=== PATIENT | female | born 1990 | race Caucasian/White ===

== ENCOUNTER 2016-07-07 19:05 | Outpatient (CLI) | payer OTHER ==
[~2016-07-07] VITALS: Ht 162.6 cm; Wt 87.3 kg
[~2016-07-07 19:05] MED LIST: ACET500T98; CIPR500T4 PO; CLOT45CR VG; FOLI1POW MC; HYDR-3498 PO; IBUP800T25; NAPR-260 PO; PREN1TAB17 PO
[2016-07-07 19:26] VITALS: BP 113/59; PULSE 70; RESP 18; Ht 162.6 cm; Wt 87.3 kg
[2016-07-07 19:49] LABS: URINE BLOOD (Dip) POC Negative (NEGATIVE)
--- NOTE | 2016-07-07 20:23 | QN ---
Documentation Comment @25+wks GA No VB some cramps currently not feeling any CTXs +FM No LOF Nst reassuring for GA [place] NO CTXs ---CXL MARY ANN EFW and labs are ordered If ultrasonographic findings and labs are wnl for her GA she can be discharged with precautions DALE BARNETT M.D. Jul 07, 2016 20:23
[2016-07-07 21:55] LABS: ADD UMIC YES; URINE BILIRUBIN (Dip) NEGATIVE (NEGATIVE); URINE BLOOD (Dip) NEGATIVE (NEGATIVE); URINE COLOR LT. YELLOW (YELLOW); URINE GLUCOSE (Dip) NEGATIVE (NEGATIVE); URINE KETONES (Dip) NEGATIVE (NEGATIVE); URINE LEUKOCYTE ESTERASE (Dip) TRACE (NEGATIVE); URINE NITRITE (Dip) NEGATIVE (NEGATIVE); URINE TOTAL PROTEIN (Dip) NEGATIVE (NEGATIVE); URINE UROBILINOGEN (Dip) 0.2 E.U./dL (0.1-1.0)
[2016-07-07 22:05] LABS: BACTERIA,URINE RARE; SQUAMOUS EPITHELIAL CELL,UR FEW; URINE RBCS 0-2 /HPF ([, 0])
--- NOTE | 2016-07-07 22:52 | RADRPT ---
PROCEDURE: US OB. CLINICAL INDICATION: labor. TECHNIQUE: Multiple sonographic images of the pelvis were obtained. Transabdominal imaging only w as performed. The images were reviewed on a PACS workstation. COMPARISON: No prior studies are available for comparison. FINDINGS: The cervix is closed with a length of 4.4 cm. There is a single viable intrauterine gestation. Cardiac activity is present with 131 beats per minute. There is a breech presentation. Measurements were made in order to determine age. The results are as follows: BPD = 5.98 cm HC = 22.59 cm AC = 20.00 cm FL = 4.66 cm Estimated gestational age of approximately 24 weeks 6 days. The estimated date of delivery is 10/21/2016. The EFW = 751 g. EFW percentile: 25% The placenta is anterior, grade 1. There is no evidence for an abruption or placenta previa. There is a normal amount of amniotic fluid. The MVP measures 4.7 cm. IMPRESSION: 1. Single viable intrauterine gestation of approximately 24 weeks 6 days, based on ultrasound measu rements. The estimated date of delivery is 10/21/2016. 2. EFW percentile: 25%. RPTAT: HTAR .Jimmie Moseley MD, Date Time Electronically viewed and signed by .Jimmie Moseley MD, on 07/07/2016 22:52 .R/
--- NOTE | 2016-07-08 01:03 | TRIAGE ---
OB Triage Datetime Report Generated by CPN: 07/08/2016 01:02 Datetime: 07/07/2016 22:00 Heart Rate FHR Baseline Rate: 140 Comments: Baby audibly active but difficult to monitor Datetime: 07/07/2016 20:59 Heart Rate FHR Baseline Rate: 140 Monitor Mode: External US Datetime: 07/07/2016 20:51 Heart Rate FHR Baseline Rate: 140 Monitor Mode: External US Datetime: 07/07/2016 20:10 Stage of : OB Triage FHR Baseline Changes: No Baseline Change Variability: Moderate 6-25 bpm Accelerations: 10X10 Datetime: 07/07/2016 19:55 Labor Evaluation Frequency: toco replaced Monitor Mode: External Datetime: 07/07/2016 19:50 Monitor Mode: External Pattern: Normal: <= 5 Contractions in 10 Minutes Resting Tone [place]: Relaxed Heart Rate FHR Baseline Rate: 140 Monitor Mode: External US FHR Baseline Changes: No Baseline Change Variability: Moderate 6-25 bpm Accelerations: 10X10 Category: Category I Datetime: 07/07/2016 19:30 Time of Arrival: 07/07/2016 18:50 EGA: 25.2 Arrived By: Wheelchair Arrived From: Home Chief Complaint: w/ c/o lower abd cramping and pressure since 1200 Movement: Present Contractions: Irregular Time Contractions Began: 07/07/2016 12:00 Rupture of Membranes: Denies Vaginal Discharge: Denies Recent Sexual Intercouse: Denies Abdominal Trauma: Not Applicable Patient Complaints: Cramping Time Provider Notified: 07/07/2016 19:50 Provider Notified: Dr Romero Initial Plan: EFM Datetime: 07/07/2016 19:29 Vaginal Exam Membrane Status: Intact Datetime: 07/07/2016 19:14 Maternal Assessment Level of Consciousness: Fully Conscious Headache: Denies Blurred Vision: No Nausea/Vomiting: Denies RUQ Epigastric Pain: Denies Facial Edema: None Labor Evaluation Frequency: placed Monitor Mode: External Resting Tone [place]: Relaxed Monitor Mode: External US Comments: FHT 135, Baby active and difficult to monitor Pain Assessment Pain Scale: 7 Pain Presence: Intermittent Pain Type: Cramping; Pressure Pain Location: Abdomen; Perineum
== END 2016-07-07 23:21 | disposition home or self-care (01) ==
LOC: OBT 19:05 → L-D 19:06 → OBT 23:21
PROVIDERS: ATTEND Obstetrics & Gynecology
DX: O26.892 Other specified pregnancy related conditions, second trimester (principal); R10.9 Unspecified abdominal pain; O60.02 Preterm labor without delivery, second trimester; Z3A.25 25 weeks gestation of pregnancy
CPT/HCPCS: 76815; 76817; 81001; 81003; 82731; G0463

== ENCOUNTER 2016-09-27 02:02 | Outpatient (CLI) | payer OTHER ==
[~2016-09-27] VITALS: Ht 162.6 cm; Wt 94.0 kg
[~2016-09-27 02:02] MED LIST changes: -ACET500T98; -CIPR500T4 PO; -CLOT45CR VG; -FOLI1POW MC; -HYDR-3498 PO; -IBUP800T25; -NAPR-260 PO
[2016-09-27 02:33] VITALS: BP 125/75; PULSE 90; RESP 18; Ht 162.6 cm; Wt 94.0 kg
[2016-09-27] MEDS ORDERED: PRENAT PO (02:35)
[2016-09-27] MEDS ORDERED: ACETAMINOPHEN 500 MG TAB PO STA (03:05)
--- NOTE | 2016-09-27 04:45 | PN ---
Date/Time of Note Date/Time of Note DATE: 09/27/16 TIME: 04:42 OB Subjective Subjective Subjective 26 yo P 2092 @ 37 wks w back pain and decreased movement, now feels baby moving OB Objective Objective Objective 125/75,90,18,97.7 Abdomen- gravid, n/t SVE- 1/50/-3 FHT- Cat I [place]- no ctx Abdomen: WNL Cervical Dilatation: 1cm Effacement: 50% Station: -3 Heart Rate: 120's Accelerations: Accelerations Present Decelerations: No Decelerations Varibility: Moderate Contractions on Admission: None OB Assessment/Plan Other Assessment: 26 yo P2090 @ 37 wks w decreased FM, now feels baby moving back pain that is constant Other plan: patient reassured that pack pain is normal at the end of if BPP is normal, d/c home and f/u tomorrow for repeat NST if decreased FM, otherwise f/u in clinic JUAN BEVERLY MD Sep 27, 2016 04:45
--- NOTE | 2016-09-27 04:50 | RADRPT ---
PROCEDURE: Biophysical profile. CLINICAL INDICATION: Pelvic pain. TECHNIQUE: Multiple sonographic images of the pelvis were obtained with transabdominal technique. COMPARISON: 07/07/2016. FINDINGS: There is a single living intrauterine gestation with the fetus in a vertex position. The placenta i s anterior in location, grade II to III. heart tones of 137 beats per minute are identified. There is low normal amniotic fluid volume with an MARY ANN of 7.3 cm. breathing movements = 2 Gross body movements = 2 tone = 2 Qualitative AFV = 2 IMPRESSION: Biophysical profile 8 out of 8. Low normal MARY ANN of 7.3 cm. .Jl Turner MD, Date Time Electronically viewed and signed by .Jl Turner MD, MD on 09/27/2016 04:50 .T/
--- NOTE | 2016-09-27 06:07 | TRIAGE ---
OB Triage Datetime Report Generated by CPN: 09/27/2016 06:06 Datetime: 09/27/2016 05:18 Stage of : OB Triage Datetime: 09/27/2016 04:43 Stage of : OB Triage Datetime: 09/27/2016 04:30 Labor Evaluation Frequency: X3 Monitor Mode: External Duration (sec)2399: 40-60 Quality: Mild Resting Tone [place]: Relaxed Heart Rate FHR Baseline Rate: 125 Monitor Mode: External US Variability: Moderate 6-25 bpm Accelerations: 15X15 Decelerations: None Category: Category I Datetime: 09/27/2016 04:14 Stage of : OB Triage Datetime: 09/27/2016 04:08 Stage of : OB Triage Datetime: 09/27/2016 03:32 Vaginal Exam Dilatation (cms): 1.0 Effacement (%): 50 Station: -3 Exam By: Shraddha TOURE Vaginal Bleeding: None Cervix, Consistency: Firm Cervix, Position: Posterior Presentation 'A': Cephalic Datetime: 09/27/2016 03:29 Stage of : OB Triage Labor Evaluation Frequency: x2 Monitor Mode: External Duration (sec)2399: 5-60 Quality: Mild Resting Tone [place]: Relaxed Heart Rate FHR Baseline Rate: 120 Monitor Mode: External US Variability: Moderate 6-25 bpm Accelerations: 15X15 Decelerations: None Category: Category I Datetime: 09/27/2016 02:52 Stage of : OB Triage Datetime: 09/27/2016 02:25 Assessment Type: Triage Maternal Assessment Level of Consciousness: Fully Conscious DTR's/Clonus: DTRs 1+; No Clonus Headache: Denies Blurred Vision: No Respiratory Effort: Unlabored Breath Sounds, Left: Clear and Equal Breath Sounds, Right: Clear and Equal Nausea/Vomiting: Denies RUQ Epigastric Pain: Denies Lower Extremities Edema: None Degree: None Upper Extremities Edema: None Degree: None Facial Edema: None Fall Risk Assessment History of Falling: (0) No Secondary Diagnosis: (0) No Ambulatory Aid: (0) Bedrest/Nurse Assist IV Therapy: (0) No Gait: (0) Normal/Bedrest/Immobile Mental Status: (0) Oriented to Own Ability Fall Score: 0 Fall Risk Score Definition: No Risk: No action required Datetime: 09/27/2016 02:22 Time of Arrival: 09/27/2016 02:09 EGA: 37.0 Arrived By: Wheelchair Arrived From: Home Chief Complaint: Almost fell, low abd, cvramping and dfm since Movement: Decreased Contractions: Irregular Time Contractions Began: 09/27/2016 23:00 Contractions: Q10 MIN Rupture of Membranes: Denies Vaginal Bleeding: None Vaginal Discharge: Denies Recent Sexual Intercouse: Denies Abdominal Trauma: Not Applicable Patient Complaints: Cramping; Back Pain Initial Plan: VS, EFM, BPP, MARY ANN, SVE, PO HYDRATION, TYLENOL 1000MG Datetime: 09/27/2016 02:16 Stage of : OB Triage Monitor Mode: External Datetime: 09/27/2016 02:14 Stage of : OB Triage Monitor Mode: External US Datetime: 09/27/2016 02:13 Stage of : OB Triage Datetime: 09/27/2016 02:07 Stage of : OB Triage Datetime: 07/07/2016 23:13 Comments: Baby active Pain Assessment Pain Scale: 2 Pain Presence: Constant Pain Type: Pressure Pain Location: Abdomen Datetime: 07/07/2016 19:30 EGA: 25.2
== END 2016-09-27 05:25 | disposition home or self-care (01) ==
LOC: OBT 02:02 → L-D 02:03 → OBT 05:25
PROVIDERS: ATTEND Obstetrics & Gynecology
DX: O36.8130 Decreased fetal movements, third trimester, not applicable or unspecified (principal); O26.893 Other specified pregnancy related conditions, third trimester; M54.5 Low back pain; Z3A.37 37 weeks gestation of pregnancy
CPT/HCPCS: 76818; Z7500; Z7610; G0463

== ENCOUNTER 2016-10-06 16:57 | Outpatient (CLI) | payer OTHER ==
[~2016-10-06] VITALS: Ht 162.6 cm; Wt 94.4 kg
[~2016-10-06 16:57] MED LIST changes: +PRENAT PO
--- NOTE | 2016-10-06 18:12 | RADRPT ---
PROCEDURE: US OB biophysical profile. CLINICAL INDICATION: decreased movements, pelvic pain TECHNIQUE: Multiple sonographic images of the pelvis were obtained. The images were reviewed on a PACS workstation. COMPARISON: 09/27/2016 FINDINGS: There is a single viable intrauterine gestation. Cardiac activity is present with 132 beats per min katerina. There is a vertex presentation. The placenta is anterior. There is no evidence of placental abruption. There is a normal amount of amniotic fluid with an MARY ANN = 8.6 cm. Biophysical profile: movement 2/2 tone 2/2. breathing 2/2 MARY ANN 2/2 Total 01/26 RPTAT: AA . IMPRESSION: Normal biophysical profile. . .Torey Cali MD, MD Date Time Electronically viewed and signed by .Torey Cali MD, MD on 10/06/2016 18:12 .S/
[2016-10-06 19:15] VITALS: Ht 162.6 cm; Wt 94.4 kg
[2016-10-06 19:16] VITALS: BP 117/63; PULSE 84; RESP 18
--- NOTE | 2016-10-06 19:23 | TRIAGE ---
OB Triage Datetime Report Generated by CPN: 10/06/2016 19:23 Datetime: 10/06/2016 18:38 Time of Arrival: 10/06/2016 16:57 EGA: 38.2 Arrived By: Ambulatory Arrived From: Home Chief Complaint: UC Movement: Present Contractions: Denies/Absent Time Contractions Began: 10/06/2016 00:00 Rupture of Membranes: Denies Vaginal Bleeding: None Vaginal Discharge: Denies Recent Sexual Intercouse: Denies Abdominal Trauma: Not Applicable Patient Complaints: Contractions Time Provider Notified: 10/06/2016 17:33 Provider Notified: Foroohar Initial Plan: NST, BPP/MARY ANN Datetime: 10/06/2016 18:36 Labor Evaluation Frequency: OCC Monitor Mode: External Resting Tone [place]: Relaxed Contraction Comments: UC difficult to see on monitor despite TOCO being adjusted on several areas of pt's abdomen. Mild occasional contractions noted upon palpation. Heart Rate FHR Baseline Rate: 135 Monitor Mode: External US FHR Baseline Changes: No Baseline Change Variability: Moderate 6-25 bpm Accelerations: 15X15 Decelerations: None Category: Category I Pain Assessment Pain Scale: 7 Pain Presence: Intermittent Pain Type: Contraction; Pressure Pain Location: Abdomen; Back Pain Goal: 0 Pain Relief Measures: Comfort Measures Datetime: 10/06/2016 17:36 Monitor Mode: External Resting Tone [place]: Relaxed Heart Rate FHR Baseline Rate: 130 Monitor Mode: External US FHR Baseline Changes: No Baseline Change Variability: Moderate 6-25 bpm Accelerations: 15X15 Decelerations: None Category: Category I Pain Assessment Pain Scale: 8 Pain Presence: Intermittent Pain Type: Contraction; Pressure Pain Location: Abdomen; Back Pain Goal: 0 Pain Relief Measures: Comfort Measures Datetime: 10/06/2016 17:14 Vaginal Exam Dilatation (cms): 1.0 Effacement (%): 50 Station: -3 Exam By: Mary RN Datetime: 10/06/2016 17:06 Assessment Type: Triage Maternal Assessment Level of Consciousness: Fully Conscious DTR's/Clonus: DTRs 2+; No Clonus Headache: Denies Blurred Vision: No Respiratory Effort: Unlabored; Regular Rhythm; Equal Expansion Breath Sounds, Left: Clear and Equal Breath Sounds, Right: Clear and Equal Nausea/Vomiting: Denies RUQ Epigastric Pain: Denies Lower Extremities Edema: Bilateral Lower Extremities Degree: trace Upper Extremities Edema: Bilateral Upper Extremities Degree: trace Facial Edema: None Fall Risk Assessment History of Falling: (0) No Secondary Diagnosis: (0) No Ambulatory Aid: (0) Bedrest/Nurse Assist IV Therapy: (0) No Gait: (0) Normal/Bedrest/Immobile Mental Status: (0) Oriented to Own Ability Fall Score: 0 Fall Risk Score Definition: No Risk: No action required Datetime: 10/06/2016 16:59 Stage of : OB Triage Datetime: 09/27/2016 02:25 Fall Score: 0 Fall Risk Score Definition: No Risk: No action required Datetime: 09/27/2016 02:22 EGA: 37.0 Datetime: 07/07/2016 19:30 EGA: 25.2
--- NOTE | 2016-10-07 10:07 | CONS ---
Date/Time of Note Date/Time of Note DATE: 10/07/16 TIME: 10:00 Consultation Date/Type/Reason Admit Date/Time October 06, 2006 OB triage consult Reason for Consultation 26 This patient is a 26 years old 10 para 2 spontaneous 1 induced 6 who came to the triage area complaining that she is in labor On examination her vital signs were normal blood pressure 117/63 pulse rate 84 respiration 18 and temperature 98.1 abdomen was soft fetus appears to be in vertex presentation very few mild contractions heart tones did have good variability occasional axilla on pelvic examination her cervix was 1 cm 50% effaced -3 station with intact membranes On the report was a single viable intrauterine with heart rate of 132 bpm in vertex presentation her biophysical profile was reported 01/26 MARY ANN of 8.6 we performed an ultrasound study Constitutional: No chills, No diaphoresis, No disoriented, No febrile, No improved, No no complaints, No other, No poor po, No requiring IVF, No requiring O2 Eyes: No discharge, No no complaints, No other, No pain, No redness, No visual change ENT: No bleeding, No congestion, No discharge, No dysphagia, No no complaints, No other, No pain, No sore throat Respiratory: No cough, No no complaints, No other, No pain, No pleuritic pain, No shortness of breath, No sputum, No wheezing Cardiovascular: No chest pain, No edema, No lightheadedness, No no complaints, No orthopenea, No other, No palpitations, No paroxysmal nocturnal dyspnea Gastrointestinal: other, No blood, No constipation, No decreased appetite, No diarrhea, No flatus, No nausea, No no complaints, No pain, No passing stool, No vomiting Genitourinary: other (As I mentioned on pelvic examination her cervix was just 1 cm 50% effaced with -3 station with intact memory), No bleeding, No discharge, No dysuria, No flank pain, No hematuria, No no complaints Musculoskeletal: No back pain, No bone/joint pain, No neck pain, No no complaints, No other, No restricted range of motion, No swelling Skin: No bruising, No erythema, No laceration, No no complaints, No other, No pruritis, No rash, No skin lesions Neurologic: No confusion, No dizziness, No focal-weakness, No headache, No no complaints, No other, No seizure, No syncope Endocrine: No dry skin, No no complaints, No other, No polydypsia, No polyuria , No temp intolerance Psychological: No anxiety, No confusion, No depression, No nl mood/affect, No no complaints, No other, No suicidal Additional Comments Due to the fact that she did not have much of the contractions and did not seem to be in labor Patient was reassured regarding the labor and discharged home to return when she is ready in labor and to be seen at her clinic soon for follow-up Social History Smoking Status: Never smoker Exam/Review of Systems Vital Signs Vitals Vital Signs Date Time Temp Pulse Resp B/P Pulse Ox O2 Delivery O2 Flow Rate FiO2 10/06/16 19:16 98.1 84 18 117/63 Room Air ESTELA RUSSELL MD Oct 07, 2016 10:07
== END 2016-10-06 18:55 | disposition home or self-care (01) ==
LOC: L-D 16:57 → OBT 16:57
PROVIDERS: ATTEND Obstetrics & Gynecology
DX: O62.9 Abnormality of forces of labor, unspecified (principal); O36.8130 Decreased fetal movements, third trimester, not applicable or unspecified; R10.2 Pelvic and perineal pain; Z3A.38 38 weeks gestation of pregnancy
CPT/HCPCS: 76818; Z7500; G0463

== ENCOUNTER 2016-10-10 15:21 | Inpatient (IN) | payer OTHER ==
[~2016-10-10] VITALS: Ht 162.6 cm; Wt 94.2 kg
[2016-10-10 15:33] VITALS: Ht 162.6 cm; Wt 94.2 kg
[2016-10-10 15:34] VITALS: BP 99/56; PULSE 105
[2016-10-10] MEDS ORDERED: BUTORPHANOL 2 MG INJ IV PRN (16:00)
[2016-10-10] MEDS ORDERED: OXYTOCIN 30 UNITS/LR 500 ML IV PRN (16:00)
[2016-10-10] MEDS ORDERED: LIDOCAINE 1% (MPF) 30 ML INJ INJ PRN (16:00)
[2016-10-10] MEDS ORDERED: MISOPROSTOL 200 MCG TAB PR PRN (16:00)
[2016-10-10] MEDS ORDERED: IBUPROFEN 600 MG TAB PO PRN (16:00)
[2016-10-10] MEDS ORDERED: CARBOPROST 250 MCG INJ IM PRN (16:00)
[2016-10-10] MEDS ORDERED: METHYLERGONOVINE 0.2 MG INJ IM PRN (16:00)
[2016-10-10] MEDS ORDERED: OXYTOCIN 30 UNITS/LR 500 ML IV SCH ×3 (16:00)
[2016-10-10] MEDS: LACTATED RINGER'S 1,000 ML IV SCH ×2 (16:43→23:00)
[2016-10-10 17:00] LABS: ADD SCAN DIFF NO
[2016-10-10] MEDS ORDERED: LACTATED RINGER'S 1,000 ML IV PRN (17:00)
[2016-10-10 17:01] LABS: BASOPHILS % 0.2 % (0.0-2.0); EOSINOPHILS # 0.1 10^3/ul (0.0-0.5); EOSINOPHILS % 1.1 % (0.0-7.0); HEMATOCRIT 33.7 % (37.0-47.0); HEMOGLOBIN 10.6 g/dl (12.0-16.0); LYMPHOCYTES # 1.7 10^3/ul (0.8-2.9); LYMPHOCYTES % 15.4 % (15.0-51.0); MEAN CORPUSCULAR HEMOGLOBIN 25.1 pg (29.0-33.0); MEAN CORPUSCULAR HGB CONC 31.5 g/dl (32.0-37.0); MEAN CORPUSCULAR VOLUME 79.7 fl (82.0-101.0); MEAN PLATELET VOLUME 11.6 fl (7.4-10.4); MONOCYTE # 0.6 10^3/ul (0.3-0.9); MONOCYTES % 5.9 % (0.0-11.0); NEUTROPHIL # 8.2 10^3/ul (1.6-7.5); NEUTROPHILS % 76.5 % (39.0-77.0); PLATELET COUNT 328 10^3/UL (140-415); RED BLOOD COUNT 4.23 10^6/ul (4.20-5.40); RED CELL DISTRIBUTION WIDTH 16.1 % (11.5-14.5); WHITE BLOOD COUNT 10.8 10^3/ul (4.8-10.8)
[2016-10-10 17:12] LABS: INR 0.95; PROTIME 12.7 Sec (12.2-14.2)
[2016-10-10 17:13] LABS: PARTIAL THROMBOPLASTIN TIME 29.2 Sec (25.0-35.0)
--- NOTE | 2016-10-10 17:47 | HP ---
Date/Time of Note Date/Time of Note DATE: 10/10/16 TIME: 17:41 OB - History Hx of Present Free Text/Dictation Patient is 10 para 2 at 38+6 weeks of gestation presents in early labor with contractions and pain level of 6 out of 10 Patient reports no leaking fluid, no vaginal bleeding and positive movement Patient's prior obstetrical history significant for multiple D&Cs Chief Complaint: Regular contractions Estimated Due Date: Oct 18, 2016 : 10 Para: 2 Care: Good Care Obstetrical Complications: None Medical Complications: None Past Family/Social History * Past Medical, Surgical, Family and Obstetric Histories reviewed from chart. OB Admission Exam Vital Signs Vital Signs Vital Signs Date Time Temp Pulse Resp B/P Pulse Ox O2 Delivery O2 Flow Rate FiO2 10/10/16 15:34 98.1 105 99/56 Room Air Physical Exam Cervical Dilatation: Fingertip Effacement: 50% Station: -3 Membranes: Intact Accelerations: Accelerations Present Decelerations: No Decelerations Varibility: Moderate Contractions on Admission: 6-10 Minutes Apart Intensity: Mild Last 72 hours Lab Results CBC & BMP 10/10/16 16:40 OB Assessment/Plan Other plan: Admit patient Augmentation of labor with oxytocin Pain meds as needed Anticipate normal vaginal delivery RALF WHALEN MD Oct 10, 2016 17:47
[2016-10-10] MEDS: BUTORPHANOL 2 MG INJ IV PRN ×2 (20:25→23:35)
[2016-10-11] MEDS: LACTATED RINGER'S 1,000 ML IV SCH (13:37)
--- NOTE | 2016-10-14 01:10 | DS ---
Date/Time of Note Date/Time of Note DATE: 10/11/16 TIME: 17:11 Obstetrical Discharge Record Final Diagnosis Final Diagnosis: Term not delivered Condition on Discharge Physical Assessment Bowel Movement: Yes Patient Condition: Stable DIONISIO ANDREWS MD Oct 14, 2016 01:09
== END 2016-10-11 17:30 | disposition home or self-care (01) | DRG 780 ==
LOC: OBT 15:21 → L-D 15:22 → OBT 16:00 → L-D 16:00
PROVIDERS: ADMIT Obstetrics & Gynecology; ATTEND Obstetrics & Gynecology
DX: O47.1 False labor at or after 37 completed weeks of gestation (principal); Z3A.38 38 weeks gestation of pregnancy
CPT/HCPCS: 85025; 85610; 85730; 86592; 86900; 86901; 87340; G0463; J2590; J7120

== ENCOUNTER 2016-10-13 05:20 | Inpatient (IN) | payer OTHER ==
[~2016-10-13] VITALS: Ht 162.6 cm; Wt 93.9 kg
[2016-10-13 05:39] VITALS: BP 132/97; PULSE 86; RESP 18
[2016-10-13] MEDS ORDERED: LACTATED RINGER'S 1,000 ML IV SCH (05:42)
--- NOTE | 2016-10-13 05:52 | TRIAGE ---
OB Triage Datetime Report Generated by CPN: 10/13/2016 05:51 Datetime: 10/13/2016 05:40 Stage of : OB Triage Datetime: 10/13/2016 05:35 Time of Arrival: 10/13/2016 05:20 EGA: 39.2 Arrived By: Wheelchair Arrived From: Home Chief Complaint: C/O UCS Movement: Present Contractions: Regular Contractions: Q3 Patient Complaints: Contractions Time Provider Notified: 10/13/2016 05:40 Provider Notified: Dr Hadadian Initial Plan: EFM,SVE Datetime: 10/13/2016 05:29 Maternal Assessment Level of Consciousness: Fully Conscious Headache: Denies Blurred Vision: No Nausea/Vomiting: Denies RUQ Epigastric Pain: Denies Facial Edema: None Monitor Mode: External Resting [place]one [place]: Relaxed Heart Rate FHR Baseline Rate: 140 Monitor Mode: External US Pain Assessment Pain Scale: 9 Pain Presence: Intermittent Pain Type: Contraction Pain Location: Abdomen Vaginal Exam Dilatation (cms): 5.0 Effacement (%): 80 Station: -1 Exam By: E Yakov Membrane Status: Bulging Vaginal Bleeding: Scant Cervix, Consistency: Soft Cervix, Position: Midposition Presentation 'A': Cephalic Datetime: 10/11/2016 17:19 Pattern: Normal: <= 5 Contractions in 10 Minutes Contraction Comments: no uc Heart Rate FHR Baseline Rate: 140 Monitor Mode: External US Variability: Moderate 6-25 bpm Accelerations: 15X15 Decelerations: None Category: Category I Pain Presence: None/Denies Pain Type: N/A Datetime: 10/11/2016 16:30 Pattern: Normal: <= 5 Contractions in 10 Minutes Contraction Comments: NO UC Heart Rate FHR Baseline Rate: 135 Monitor Mode: External US Variability: Moderate 6-25 bpm Accelerations: 15X15 Decelerations: None Category: Category I Datetime: 10/11/2016 15:30 Monitor Mode: External Resting [place]one [place]: Relaxed Heart Rate FHR Baseline Rate: 150 Monitor Mode: External US FHR Baseline Changes: No Baseline Change Variability: Moderate 6-25 bpm Accelerations: 15X15 Decelerations: None Category: Category I Pain Presence: None/Denies Datetime: 10/11/2016 14:30 Headache: Denies Blurred Vision: No RUQ Epigastric Pain: Denies Facial Edema: None Labor Evaluation Frequency: none Pattern: Normal: <= 5 Contractions in 10 Minutes Resting [place]one [place]: Relaxed Heart Rate FHR Baseline Rate: 140 Monitor Mode: External US FHR Baseline Changes: No Baseline Change Variability: Moderate 6-25 bpm Accelerations: 15X15 Decelerations: None; Early Category: Category I Pain Presence: None/Denies Membrane Status: Intact Datetime: 10/11/2016 13:30 Headache: Denies Blurred Vision: No RUQ Epigastric Pain: Denies Facial Edema: None Labor Evaluation Frequency: none Monitor Mode: External Quality: Mild Pattern: Normal: <= 5 Contractions in 10 Minutes Resting [place]one [place]: Relaxed Heart Rate FHR Baseline Rate: 140 Monitor Mode: External US FHR Baseline Changes: No Baseline Change Variability: Moderate 6-25 bpm Accelerations: 15X15 Decelerations: None Category: Category I Pain Presence: None/Denies Membrane Status: Intact Datetime: 10/11/2016 12:59 Labor Evaluation Frequency: 0 Monitor Mode: External Heart Rate FHR Baseline Rate: 140 Monitor Mode: External US FHR Baseline Changes: No Baseline Change Variability: Moderate 6-25 bpm Accelerations: 15X15 Decelerations: None Category: Category I Pain Assessment Pain Scale: 4 Pain Presence: Intermittent Pain Type: Contraction Pain Goal: 2 Datetime: 10/11/2016 12:00 Labor Evaluation Frequency: 0 Heart Rate FHR Baseline Rate: 130 Monitor Mode: External US FHR Baseline Changes: No Baseline Change Variability: Moderate 6-25 bpm Accelerations: 15X15 Decelerations: None Category: Category I Pain Assessment Pain Scale: 4 Pain Presence: Intermittent Pain Type: Contraction Pain Location: Abdomen Pain Goal: 2 Membrane Status: Intact Datetime: 10/11/2016 10:14 Pattern: Normal: <= 5 Contractions in 10 Minutes Contraction Comments: NO UC Heart Rate FHR Baseline Rate: 125 Monitor Mode: External US Variability: Moderate 6-25 bpm Accelerations: 15X15 Decelerations: None Category: Category I Datetime: 10/11/2016 10:11 Vaginal Exam Dilatation (cms): 2.0 Effacement (%): 80 Station: -3 Exam By: WLIU Datetime: 10/11/2016 09:43 Labor Evaluation Frequency: none Pattern: Normal: <= 5 Contractions in 10 Minutes Resting [place]one [place]: Relaxed Heart Rate FHR Baseline Rate: 140 Monitor Mode: External US FHR Baseline Changes: No Baseline Change Variability: Moderate 6-25 bpm Accelerations: 15X15 Decelerations: None Category: Category I Membrane Status: Intact Datetime: 10/11/2016 09:00 Labor Evaluation Frequency: 4-7 Monitor Mode: External Duration (sec)2399: 60 Quality: Strong Pattern: Normal: <= 5 Contractions in 10 Minutes Resting [place]one [place]: Relaxed Heart Rate FHR Baseline Rate: 130 Monitor Mode: External US FHR Baseline Changes: No Baseline Change Variability: Moderate 6-25 bpm Accelerations: 15X15 Decelerations: None Category: Category I Pain Assessment Pain Scale: 4 Pain Presence: Intermittent Pain Type: Contraction Pain Location: Abdomen Pain Goal: 2 Pain Relief Measures: Comfort Measures Membrane Status: Intact Datetime: 10/11/2016 08:30 Labor Evaluation Frequency: 3-11 Monitor Mode: External Duration (sec)2399: 60-90 Quality: Mild Pattern: Normal: <= 5 Contractions in 10 Minutes Resting [place]one [place]: Relaxed Heart Rate FHR Baseline Rate: 130 Monitor Mode: External US FHR Baseline Changes: No Baseline Change Variability: Moderate 6-25 bpm Accelerations: 15X15 Decelerations: None Category: Category I Pain Assessment Pain Scale: 4 Pain Presence: Intermittent Pain Type: Contraction Pain Location: Abdomen Pain Goal: 2 Pain Relief Measures: Comfort Measures Membrane Status: Intact Datetime: 10/11/2016 08:01 Labor Evaluation Frequency: 4 Monitor Mode: External Duration (sec)2399: 50 Quality: Mild Pattern: Normal: <= 5 Contractions in 10 Minutes Resting [place]one [place]: Relaxed Heart Rate FHR Baseline Rate: 135 Monitor Mode: External US Variability: Moderate 6-25 bpm Accelerations: 15X15 Decelerations: None Category: Category I Pain Assessment Pain Scale: 5 Pain Presence: Intermittent Pain Type: Contraction Pain Location: Abdomen Pain Goal: 3 Datetime: 10/11/2016 07:31 Labor Evaluation Frequency: 3-6 Monitor Mode: External Duration (sec)2399: 50-60 Quality: Moderate Pattern: Normal: <= 5 Contractions in 10 Minutes Resting [place]one [place]: Relaxed Heart Rate FHR Baseline Rate: 135 Monitor Mode: External US Variability: Minimal - Undetectable to <=5 bpm Accelerations: 15X15 Decelerations: None Category: Category I Datetime: 10/11/2016 07:19 Assessment Type: Ongoing Assessment Maternal Assessment Level of Consciousness: Fully Conscious DTR's/Clonus: DTRs 2+; No Clonus Headache: Denies Blurred Vision: No Respiratory Effort: Unlabored; Regular Rhythm; Equal Expansion Breath Sounds, Left: Clear and Equal Breath Sounds, Right: Clear and Equal Nausea/Vomiting: Denies RUQ Epigastric Pain: Denies Lower Extremities Edema: None Degree: None Upper Extremities Edema: None Degree: None Facial Edema: None Fall Risk Assessment History of Falling: (0) No Secondary Diagnosis: (0) No Ambulatory Aid: (0) Bedrest/Nurse Assist IV Therapy: (20) Yes Gait: (0) Normal/Bedrest/Immobile Mental Status: (0) Oriented to Own Ability Fall Score: 20 Fall Risk Score Definition: No Risk: No action required Datetime: 10/11/2016 05:55 Stage of : Labor Labor Evaluation Frequency: 2-4 Monitor Mode: External Duration (sec)2399: 60-90 Quality: Moderate Pattern: Normal: <= 5 Contractions in 10 Minutes Resting [place]one [place]: Relaxed Heart Rate FHR Baseline Rate: 135 Monitor Mode: External US Variability: Moderate 6-25 bpm Accelerations: 15X15 Decelerations: None Datetime: 10/11/2016 05:25 Stage of : Labor Labor Evaluation Frequency: 2-4 Monitor Mode: External Duration (sec)2399: 60-90 Quality: Moderate Pattern: Normal: <= 5 Contractions in 10 Minutes Resting [place]one [place]: Relaxed Heart Rate FHR Baseline Rate: 135 Monitor Mode: External US Variability: Moderate 6-25 bpm Accelerations: 15X15 Decelerations: None Category: Category I Datetime: 10/11/2016 04:55 Stage of : Labor Labor Evaluation Frequency: 1 1/2-5 Monitor Mode: External Duration (sec)2399: 60-90 Quality: Moderate Pattern: Normal: <= 5 Contractions in 10 Minutes Resting [place]one [place]: Relaxed Heart Rate FHR Baseline Rate: 130 Monitor Mode: External US Variability: Moderate 6-25 bpm Accelerations: 15X15 Decelerations: None Datetime: 10/11/2016 04:25 Stage of : Labor Labor Evaluation Frequency: 2-4 Monitor Mode: External Duration (sec)2399: 60-90 Quality: Moderate Pattern: Normal: <= 5 Contractions in 10 Minutes Resting [place]one [place]: Relaxed Heart Rate FHR Baseline Rate: 130 Monitor Mode: External US Variability: Moderate 6-25 bpm Accelerations: 15X15 Decelerations: None Datetime: 10/11/2016 03:55 Stage of : Labor Labor Evaluation Frequency: 1-3 Monitor Mode: External Duration (sec)2399: 60-90 Quality: Moderate Pattern: Normal: <= 5 Contractions in 10 Minutes Resting [place]one [place]: Relaxed Heart Rate FHR Baseline Rate: 130 Monitor Mode: External US Variability: Moderate 6-25 bpm Accelerations: 15X15 Decelerations: None Category: Category I Datetime: 10/11/2016 03:25 Stage of : Labor Labor Evaluation Frequency: 2-3.5 Monitor Mode: External Quality: Moderate Pattern: Normal: <= 5 Contractions in 10 Minutes Resting [place]one [place]: Relaxed Heart Rate FHR Baseline Rate: 130 Monitor Mode: External US Variability: Moderate 6-25 bpm Accelerations: 10X10 Decelerations: Early Category: Category I Datetime: 10/11/2016 02:55 Stage of : Labor Labor Evaluation Frequency: 1.5-5.5 Monitor Mode: External Duration (sec)2399: 70-90 Quality: Moderate Pattern: Normal: <= 5 Contractions in 10 Minutes Resting [place]one [place]: Relaxed Heart Rate FHR Baseline Rate: 130 Monitor Mode: External US FHR Baseline Changes: No Baseline Change Variability: Moderate 6-25 bpm Accelerations: 15X15 Decelerations: None Category: Category I Datetime: 10/11/2016 02:24 Stage of : Labor Labor Evaluation Frequency: 2-5 Monitor Mode: External Duration (sec)2399: 50-70 Quality: Moderate Pattern: Normal: <= 5 Contractions in 10 Minutes Resting [place]one [place]: Relaxed Heart Rate FHR Baseline Rate: 130 Monitor Mode: External US FHR Baseline Changes: No Baseline Change Variability: Moderate 6-25 bpm Accelerations: 10X10 Decelerations: None Category: Category I Datetime: 10/11/2016 01:56 Stage of : Labor Labor Evaluation Frequency: 2-3.5 Monitor Mode: External Duration (sec)2399: 60-80 Quality: Moderate Pattern: Normal: <= 5 Contractions in 10 Minutes Resting [place]one [place]: Relaxed Heart Rate FHR Baseline Rate: 130 Monitor Mode: External US Variability: Moderate 6-25 bpm Accelerations: 10X10 Decelerations: None Category: Category I Datetime: 10/11/2016 01:30 Stage of : Labor Labor Evaluation Frequency: 2-4 Monitor Mode: External Duration (sec)2399: 50-70 Quality: Moderate Pattern: Normal: <= 5 Contractions in 10 Minutes Resting [place]one [place]: Relaxed Heart Rate FHR Baseline Rate: 135 Monitor Mode: External US Variability: Moderate 6-25 bpm Accelerations: None Decelerations: None Pain Assessment Pain Scale: 0 Pain Presence: None/Denies Pain Type: N/A Pain Goal: 3 Datetime: 10/11/2016 01:00 Stage of : Labor Labor Evaluation Frequency: 2-4 Monitor Mode: External Duration (sec)2399: 50-70 Quality: Moderate Pattern: Normal: <= 5 Contractions in 10 Minutes Resting [place]one [place]: Relaxed Heart Rate FHR Baseline Rate: 135 Monitor Mode: External US Variability: Moderate 6-25 bpm Accelerations: None Decelerations: None Category: Category I Pain Assessment Pain Scale: 0 Pain Presence: None/Denies Pain Type: N/A Pain Goal: 3 Datetime: 10/11/2016 00:30 Stage of : Labor Labor Evaluation Frequency: 2-5 Monitor Mode: External Duration (sec)2399: 50-70 Quality: Moderate Pattern: Normal: <= 5 Contractions in 10 Minutes Resting [place]one [place]: Relaxed Heart Rate FHR Baseline Rate: 130 Monitor Mode: External US Variability: Minimal - Undetectable to <=5 bpm Accelerations: None Decelerations: None Category: Category II Pain Assessment Pain Scale: 0 Pain Presence: None/Denies Pain Type: N/A Pain Goal: 3 Pain Assessment Comments: PT ASLEEP; AROUSABLE Datetime: 10/10/2016 23:59 Respiratory Effort: Unlabored Datetime: 10/10/2016 23:55 Stage of : Labor Labor Evaluation Frequency: 2-4 Monitor Mode: External Duration (sec)2399: 50-60 Quality: Mild Pattern: Normal: <= 5 Contractions in 10 Minutes Resting [place]one [place]: Relaxed Heart Rate FHR Baseline Rate: 135 Monitor Mode: External US FHR Baseline Changes: No Baseline Change Variability: Minimal - Undetectable to <=5 bpm Accelerations: 15X15 Decelerations: None Category: Category II Pain Assessment Pain Scale: 0 Pain Presence: None/Denies Pain Type: N/A Pain Goal: 0 Pain Assessment Comments: PT REPORTED FEELING RELIEF FROM PAIN. Datetime: 10/10/2016 23:35 Stage of : Labor Maternal Assessment Level of Consciousness: Fully Conscious DTR's/Clonus: DTRs 2+; No Clonus Headache: Denies Breath Sounds, Left: Clear and Equal Breath Sounds, Right: Clear and Equal Nausea/Vomiting: Denies RUQ Epigastric Pain: Denies Pain Assessment Pain Scale: 8 Pain Presence: Intermittent Pain Type: Contraction Pain Location: Abdomen; Back Pain Goal: 0 Pain Relief Measures: Pain Medication Given; Comfort Measures Vaginal Exam Dilatation (cms): 2.0 Effacement (%): 70 Station: -3 Exam By: Kassandra PEARCEBEAN Membrane Status: Intact Cervix, Consistency: Soft Datetime: 10/10/2016 23:25 Stage of : Labor Labor Evaluation Frequency: 2-4 Monitor Mode: External Duration (sec)2399: 60-100 Quality: Mild Pattern: Normal: <= 5 Contractions in 10 Minutes Resting [place]one [place]: Relaxed Heart Rate FHR Baseline Rate: 135 Monitor Mode: External US FHR Baseline Changes: No Baseline Change Variability: Moderate 6-25 bpm Accelerations: 15X15 Decelerations: None Category: Category I Pain Assessment Pain Scale: 8 Pain Presence: Intermittent Pain Type: Contraction Pain Location: Abdomen; Back Pain Goal: 0 Pain Relief Measures: Comfort Measures Datetime: 10/10/2016 22:55 Stage of : Labor Labor Evaluation Frequency: 2-4 Monitor Mode: External Duration (sec)2399: 60-100 Quality: Mild Pattern: Normal: <= 5 Contractions in 10 Minutes Resting [place]one [place]: Relaxed Heart Rate FHR Baseline Rate: 135 Monitor Mode: External US FHR Baseline Changes: No Baseline Change Variability: Moderate 6-25 bpm Accelerations: 15X15 Decelerations: None Category: Category I Pain Assessment Pain Scale: 4 Pain Presence: Intermittent Pain Type: Contraction Pain Location: Abdomen; Back Pain Goal: 0 Pain Relief Measures: Comfort Measures Datetime: 10/10/2016 22:25 Stage of : Labor Labor Evaluation Frequency: 2-4.5 Monitor Mode: External Duration (sec)2399: 60-100 Quality: Mild Pattern: Normal: <= 5 Contractions in 10 Minutes Resting [place]one [place]: Relaxed Heart Rate FHR Baseline Rate: 135 Monitor Mode: External US FHR Baseline Changes: No Baseline Change Variability: Moderate 6-25 bpm Accelerations: 15X15 Decelerations: None Category: Category I Datetime: 10/10/2016 21:55 Stage of : Labor Labor Evaluation Frequency: 2-4 Monitor Mode: External Duration (sec)2399: 50-80 Quality: Mild Pattern: Normal: <= 5 Contractions in 10 Minutes Resting [place]one [place]: Relaxed Heart Rate FHR Baseline Rate: 135 Monitor Mode: External US FHR Baseline Changes: No Baseline Change Variability: Moderate 6-25 bpm Accelerations: 15X15 Decelerations: None Category: Category I Pain Assessment Pain Scale: 0 Pain Presence: None/Denies Pain Type: N/A Pain Goal: 0 Pain Assessment Comments: PT REPORTED NOT FEELING PAIN AT THIS TIME. Datetime: 10/10/2016 21:25 Stage of : Labor Labor Evaluation Frequency: 2-5 Monitor Mode: External Duration (sec)2399: 50-120 Quality: Mild Pattern: Normal: <= 5 Contractions in 10 Minutes Resting [place]one [place]: Relaxed Heart Rate FHR Baseline Rate: 135 Monitor Mode: External US FHR Baseline Changes: No Baseline Change Variability: Moderate 6-25 bpm Accelerations: 15X15 Decelerations: None Category: Category I Pain Assessment Pain Scale: 3 Pain Presence: Intermittent Pain Type: Contraction Pain Location: Abdomen; Back Pain Goal: 0 Pain Relief Measures: Comfort Measures Datetime: 10/10/2016 20:55 Stage of : Labor Labor Evaluation Frequency: 2-6 Monitor Mode: External Duration (sec)2399: 50-100 Quality: Mild Pattern: Normal: <= 5 Contractions in 10 Minutes Resting [place]one [place]: Relaxed Heart Rate FHR Baseline Rate: 135 Monitor Mode: External US FHR Baseline Changes: No Baseline Change Variability: Moderate 6-25 bpm Accelerations: 15X15 Decelerations: None Category: Category I Datetime: 10/10/2016 20:25 Stage of : Labor Labor Evaluation Frequency: 5-6 Monitor Mode: External Duration (sec)2399: 70-120 Quality: Mild Pattern: Normal: <= 5 Contractions in 10 Minutes Resting [place]one [place]: Relaxed Heart Rate FHR Baseline Rate: 135 Monitor Mode: External US FHR Baseline Changes: No Baseline Change Variability: Moderate 6-25 bpm Accelerations: 15X15 Decelerations: None Category: Category I Datetime: 10/10/2016 20:20 Pain Assessment Pain Scale: 8 Pain Presence: Intermittent Pain Type: Contraction Pain Location: Abdomen; Back Pain Goal: 0 Pain Relief Measures: Comfort Measures Vaginal Exam Dilatation (cms): 2.0 Effacement (%): 70 Station: -3 Exam By: Kassandra DEL ANGEL Membrane Status: Intact Vaginal Bleeding: None Cervix, Consistency: Moderate Cervix, Position: Posterior Datetime: 10/10/2016 19:55 Stage of : Labor Labor Evaluation Frequency: 2-5 Monitor Mode: External Duration (sec)2399: 60-80 Quality: Mild Pattern: Normal: <= 5 Contractions in 10 Minutes Resting [place]one [place]: Relaxed Heart Rate FHR Baseline Rate: 135 Monitor Mode: External US Variability: Moderate 6-25 bpm Accelerations: 15X15 Decelerations: None Category: Category I Datetime: 10/10/2016 19:25 Stage of : Labor Labor Evaluation Frequency: 3-4 Monitor Mode: External Duration (sec)2399: 80-90 Quality: Mild Pattern: Normal: <= 5 Contractions in 10 Minutes Resting [place]one [place]: Relaxed Contraction Comments: ABDOMEN SOFT ON PALPATION Heart Rate FHR Baseline Rate: 145 Monitor Mode: External US Variability: Moderate 6-25 bpm Accelerations: 15X15 Decelerations: None Category: Category I Comments: PT REPORTED MOVEMENT Datetime: 10/10/2016 19:20 Stage of : Labor Assessment Type: Ongoing Assessment Maternal Assessment Level of Consciousness: Fully Conscious DTR's/Clonus: DTRs 2+; No Clonus Headache: Denies Blurred Vision: No Respiratory Effort: Unlabored; Regular Rhythm; Equal Expansion Breath Sounds, Left: Clear and Equal Breath Sounds, Right: Clear and Equal Nausea/Vomiting: Denies RUQ Epigastric Pain: Denies Lower Extremities Edema: None Degree: None Upper Extremities Edema: None Degree: None Facial Edema: None Temperature Route: Oral Fall Risk Assessment History of Falling: (0) No Secondary Diagnosis: (0) No Ambulatory Aid: (0) Bedrest/Nurse Assist IV Therapy: (20) Yes Gait: (0) Normal/Bedrest/Immobile Mental Status: (0) Oriented to Own Ability Fall Score: 20 Fall Risk Score Definition: No Risk: No action required Pain Assessment Pain Scale: 4 Pain Presence: Intermittent Pain Type: Cramping; Contraction Pain Location: Abdomen; Back Pain Goal: 0 Pain Relief Measures: Comfort Measures Datetime: 10/10/2016 19:06 Stage of : Labor Maternal Assessment Level of Consciousness: Fully Conscious Headache: Denies Nausea/Vomiting: Denies RUQ Epigastric Pain: Denies Labor Evaluation Frequency: 2-6 Monitor Mode: External Duration (sec)2399: 40-80 Quality: Moderate Resting [place]one [place]: Relaxed Heart Rate FHR Baseline Rate: 130 Monitor Mode: External US Variability: Moderate 6-25 bpm Decelerations: Early Category: Category I Pain Assessment Pain Scale: 6 Pain Location: Abdomen; Right Hip; Left Hip Pain Goal: 6 Pain Relief Measures: Comfort Measures Membrane Status: Intact Datetime: 10/10/2016 18:31 Stage of : Labor Maternal Assessment Level of Consciousness: Fully Conscious Headache: Denies Nausea/Vomiting: Denies RUQ Epigastric Pain: Denies Labor Evaluation Frequency: 4-6.5 Monitor Mode: External Duration (sec)2399: 40-80 Quality: Moderate Resting [place]one [place]: Relaxed Heart Rate FHR Baseline Rate: 135 Monitor Mode: External US Variability: Moderate 6-25 bpm Decelerations: Early Category: Category I Pain Assessment Pain Scale: 6 Pain Location: Abdomen; Right Hip; Left Hip Pain Goal: 6 Pain Relief Measures: Comfort Measures Membrane Status: Intact Datetime: 10/10/2016 18:13 Stage of : Labor Maternal Assessment Level of Consciousness: Fully Conscious Headache: Denies Nausea/Vomiting: Denies RUQ Epigastric Pain: Denies Labor Evaluation Frequency: 6-10 Monitor Mode: External Quality: Moderate Resting [place]one [place]: Relaxed Heart Rate FHR Baseline Rate: 135 Monitor Mode: External US Variability: Moderate 6-25 bpm Decelerations: Variable (Annotations: OCC MILD DANNY) Category: Category II Pain Assessment Pain Scale: 6 Pain Location: Abdomen; Right Hip; Left Hip Pain Goal: 6 Pain Relief Measures: Comfort Measures Membrane Status: Intact Datetime: 10/10/2016 17:36 Stage of : Labor Maternal Assessment Level of Consciousness: Fully Conscious Headache: Denies Nausea/Vomiting: Denies RUQ Epigastric Pain: Denies Labor Evaluation Frequency: IRREG Monitor Mode: External Quality: Moderate Resting [place]one [place]: Relaxed Heart Rate FHR Baseline Rate: 140 Monitor Mode: External US Variability: Moderate 6-25 bpm Decelerations: None Category: Category I Pain Assessment Pain Scale: 6 Pain Location: Abdomen; Right Hip; Left Hip Pain Goal: 6 Pain Relief Measures: Comfort Measures Membrane Status: Intact Datetime: 10/10/2016 16:58 Stage of : OB Triage Maternal Assessment Level of Consciousness: Fully Conscious Headache: Denies Nausea/Vomiting: Denies RUQ Epigastric Pain: Denies Labor Evaluation Frequency: IRREG Monitor Mode: External Quality: Moderate Resting [place]one [place]: Relaxed Heart Rate FHR Baseline Rate: 140 Monitor Mode: External US Variability: Moderate 6-25 bpm Decelerations: None Category: Category I Pain Assessment Pain Scale: 6 Pain Goal: 6 Membrane Status: Intact Datetime: 10/10/2016 15:40 Stage of : OB Triage Maternal Assessment Level of Consciousness: Fully Conscious DTR's/Clonus: DTRs 2+; No Clonus Headache: Denies Blurred Vision: No Respiratory Effort: Unlabored; Regular Rhythm; Equal Expansion Breath Sounds, Left: Clear and Equal Breath Sounds, Right: Clear and Equal Nausea/Vomiting: Denies RUQ Epigastric Pain: Denies Lower Extremities Edema: None Upper Extremities Edema: None Facial Edema: None Temperature Route: Oral Fall Risk Assessment History of Falling: (0) No Secondary Diagnosis: (0) No Ambulatory Aid: (0) Bedrest/Nurse Assist IV Therapy: (0) No Gait: (0) Normal/Bedrest/Immobile Mental Status: (0) Oriented to Own Ability Fall Score: 0 Fall Risk Score Definition: No Risk: No action required Labor Evaluation Frequency: 4 Monitor Mode: External Quality: Moderate Resting [place]one [place]: Relaxed Heart Rate FHR Baseline Rate: 140 Monitor Mode: External US Variability: Moderate 6-25 bpm Accelerations: 10X10 Decelerations: None Category: Category I Vaginal Exam Dilatation (cms): 0.5 Effacement (%): 50 Station: -3 Exam By: BERTRAND ANGELA Membrane Status: Intact Datetime: 10/10/2016 15:24 Time of Arrival: 10/10/2016 15:24 EGA: 38.6 Arrived By: Wheelchair Arrived From: Home Chief Complaint: UC'SSINCE 1400; PT WOULD LIKE AUGMENTATION OF LABOR Movement: Decreased Contractions: Regular Time Contractions Began: 10/10/2016 14:00 Contractions: 4 Rupture of Membranes: Denies Vaginal Bleeding: None Vaginal Discharge: Denies Abdominal Trauma: Not Applicable Patient Complaints: Contractions Time Provider Notified: 10/10/2016 15:42 Provider Notified: FAZILAT Initial Plan: VE/NST/MONITOR UC'S Datetime: 10/06/2016 18:38 EGA: 38.2 Datetime: 10/06/2016 17:06 Fall Score: 0 Fall Risk Score Definition: No Risk: No action required Datetime: 09/27/2016 02:25 Fall Score: 0 Fall Risk Score Definition: No Risk: No action required Datetime: 09/27/2016 02:22 EGA: 37.0 Datetime: 07/07/2016 19:30 EGA: 25.2
[2016-10-13] MEDS ORDERED: LACTATED RINGER'S 1,000 ML IV PRN (06:00)
[2016-10-13] MEDS ORDERED: AMPICILLIN 2 GM/NS (PMX) 100 ML IV ONE (06:00)
[2016-10-13] MEDS ORDERED: IBUPROFEN 600 MG TAB PO PRN (06:00)
[2016-10-13] MEDS ORDERED: OXYTOCIN 30 UNITS/LR 500 ML IV SCH (06:00)
[2016-10-13] MEDS ORDERED: OXYTOCIN 30 UNITS/LR 500 ML IV PRN ×2 (06:00→08:00)
[2016-10-13] MEDS ORDERED: LIDOCAINE 1% (MPF) 30 ML INJ INJ PRN (06:00)
[2016-10-13] MEDS ORDERED: CARBOPROST 250 MCG INJ IM PRN ×2 (06:00→08:00)
[2016-10-13] MEDS ORDERED: BUTORPHANOL 2 MG INJ IV PRN (06:00)
[2016-10-13] MEDS ORDERED: METHYLERGONOVINE 0.2 MG INJ IM PRN ×2 (06:00→08:00)
[2016-10-13] MEDS ORDERED: MISOPROSTOL 200 MCG TAB PR PRN ×2 (06:00→08:00)
[2016-10-13 06:17] LABS: ADD SCAN DIFF NO
[2016-10-13 06:31] LABS: BASOPHILS % 0.2 % (0.0-2.0); EOSINOPHILS # 0.1 10^3/ul (0.0-0.5); EOSINOPHILS % 0.5 % (0.0-7.0); HEMATOCRIT 31.7 % (37.0-47.0); HEMOGLOBIN 10.2 g/dl (12.0-16.0); LYMPHOCYTES # 2.1 10^3/ul (0.8-2.9); LYMPHOCYTES % 18.1 % (15.0-51.0); MEAN CORPUSCULAR HEMOGLOBIN 25.7 pg (29.0-33.0); MEAN CORPUSCULAR HGB CONC 32.2 g/dl (32.0-37.0); MEAN CORPUSCULAR VOLUME 79.8 fl (82.0-101.0); MEAN PLATELET VOLUME 11.4 fl (7.4-10.4); MONOCYTE # 0.7 10^3/ul (0.3-0.9); MONOCYTES % 5.9 % (0.0-11.0); NEUTROPHIL # 8.7 10^3/ul (1.6-7.5); NEUTROPHILS % 74.6 % (39.0-77.0); PLATELET COUNT 321 10^3/UL (140-415); RED BLOOD COUNT 3.97 10^6/ul (4.20-5.40); RED CELL DISTRIBUTION WIDTH 16.2 % (11.5-14.5); WHITE BLOOD COUNT 11.7 10^3/ul (4.8-10.8)
[2016-10-13 06:33] LABS: INR 0.91; PROTIME 12.3 Sec (12.2-14.2)
[2016-10-13 06:34] LABS: PARTIAL THROMBOPLASTIN TIME 28.6 Sec (25.0-35.0)
[2016-10-13 06:35] LABS: ALANINE AMINOTRANSFERASE 29 IU/L (13-69); ALBUMIN 3.5 g/dl (3.3-4.9); ALBUMIN/GLOBULIN RATIO 0.92; ALKALINE PHOSPHATASE 272 IU/L (42-121); ANION GAP 12 (8-16); ASPARTATE AMINO TRANSFERASE 26 IU/L (15-46); BILIRUBIN,INDIRECT 0.3 mg/dl (0-1.1); BILIRUBIN,TOTAL 0.3 mg/dl (0.2-1.3); BLOOD UREA NITROGEN 8 mg/dl (7-20); CALCIUM 9.5 mg/dl (8.4-10.2); CARBON DIOXIDE 20 mmol/L (21-31); CHLORIDE 105 mmol/L (97-110); CREATININE 0.55 mg/dl (0.44-1.00); GLUCOSE 85 mg/dl (70-220); POTASSIUM 3.9 mmol/L (3.5-5.1); SODIUM 133 mmol/L (135-144); TOTAL PROTEIN 7.3 g/dl (6.1-8.1)
[2016-10-13] MEDS: OXYTOCIN 30 UNITS/LR 500 ML IV SCH ×3 (06:48→08:18)
[2016-10-13] MEDS ORDERED: DEXTROSE 5%-LR 1,000 ML IV SCH (07:52)
--- NOTE | 2016-10-13 07:56 | LDN ---
Date/Time of Note Date/Time of Note DATE: 10/13/16 TIME: 07:54 Delivery Summary 26 Year-old with SIUP at 39 2/7 weeks delivered a male over first degree laceration Weight: 6 lbs 8 oz : 8, 8 and 9 at 10 min Time of delivery: 06:38 Placenta Delivered: Spontaneously Meconium: Thick Episiotomy: No Laceration repair: 3/0 vicryl Anesthesia type: Local Sponge & Needle done & correct: Yes All needle counts correct: Yes Any foreign bodies felt in the: No Problems: Infant Delivery Information Sex Infant Sex: male Apgars 1 Minute: 8 5 Minute: 8 10 Minute: 9 Suctioning Nose & mouth suctioned at fidel: No Delee suction performed: Yes Umbilical Cord Umbilical cord with: 3 Vessels Cord presentations: no nuchal cord Cord Blood was obtained: Yes Mother & Baby Disposition Disposition Mom & Baby to Maternity; Good: Yes Mom transferred to: Med/Surg Baby to NICU: No MARINA SOW Oct 13, 2016 07:56
[2016-10-13] MEDS ORDERED: ZOLPIDEM 5 MG TAB PO PRN (08:00)
[2016-10-13] MEDS ORDERED: ACETAMINOPHEN 325 MG TAB PO PRN (08:00)
[2016-10-13] MEDS ORDERED: WITCH HAZEL/GLYCERIN PAD PR PRN (08:00)
[2016-10-13] MEDS ORDERED: DIPHENHYDRAMINE 50 MG INJ IV PRN (08:00)
[2016-10-13] MEDS ORDERED: OXYCODONE/ASPIRIN (4.88/325) TAB PO PRN (08:00)
[2016-10-13] MEDS ORDERED: LANOLIN 7 GM TUBE TOP PRN (08:00)
[2016-10-13] MEDS ORDERED: DIBUCAINE 1% 30 GM OINT PR PRN (08:00)
[2016-10-13] MEDS ORDERED: ONDANSETRON 4 MG INJ IV PRN (08:00)
[2016-10-13] MEDS ORDERED: SENNA/DOCUSATE NA (8.6MG/50MG) TAB PO PRN (08:00)
[2016-10-13] MEDS ORDERED: BENZOCAINE 20% 56 ML SPRAY TOP PRN (08:00)
--- NOTE | 2016-10-13 08:09 | HP ---
Date/Time of Note Date/Time of Note DATE: 10/13/16 TIME: 07:56 OB - History Hx of Present Free Text/Dictation 26 Year-old with SIUP at 39 2/7 weeks presents with a chief complaint of ucs. She has been receiving her care with Dr. Rowland. She states good movement. She denies nausea, vomiting, shortness of breath, chest pain, and abdominal pain between contractions, headache, visual changes, vaginal bleeding or LOF. : 11 Para: 2 Spontaneous : 4 Therapeutic : 4 Care: Good Care Ultrasounds: Normal mid trimester US Obstetrical Complications: None Medical Complications: None Past Family/Social History * Past Medical, Surgical, Family and Obstetric Histories reviewed from chart. Blood Type: O+ Rubella: immune RPR/VDRL: Negative GBS Status: Negative HBsAG: Negative OB Admission Exam Vital Signs Vital Signs Vital Signs Date Time Temp Pulse Resp B/P Pulse Ox O2 Delivery O2 Flow Rate FiO2 10/13/16 05:39 97.8 86 18 132/97 Room Air Physical Exam HEENT: WNL Heart: Rhythm Normal Abdomen: WNL Extremities: Normal Cervical Dilatation: 5cm Effacement: 75% Station: -1 Membranes: Intact Amniotic Fluid: Thick Meconium Heart Rate: 140's Accelerations: Accelerations Present Decelerations: No Decelerations Varibility: Moderate Contractions on Admission: < 5 Minutes Apart Intensity: Moderate Last 72 hours Lab Results CBC & BMP 10/13/16 06:05 Liver Function Test 10/13/16 06:05 Alanine Aminotransferase (ALT/SGPT) 29 Albumin 3.5 Alkaline Phosphatase 272 H Aspartate Amino Transf (AST/SGOT) 26 Direct Bilirubin 0.00 Total Protein 7.3 OB Assessment/Plan Other plan: 26 Year-old with SIUP at 39 2/7 weeks in active labor. - FHR: No sign of metabolic acidosis- Category I - Continious EFM, toco - CBC, blood type and screen - Analgesia options with R/B/A discussed in detail with patient - Epidural per patient request - Please see the orders - O+/Rubella: Immune/GBS negative positive Admission, procedures, expectations, risks and possible complications have been discussed in detail with the patient. Risk of vaginal delivery including but not limited to bleeding, infection, cervical laceration, placental retention, injury to fetus, blood transfusion, blood transfusion related infection, risk of anesthesia, adhesion, cervical laceration, episiotomy/laceration, possible delivery with risk of bleeding, infection, injury to other organs ( bowel, bladder, ureter, vessels, nerves), injury to fetus, blood transfusion, blood transfusion related infection, risk of anesthesia, scar and hernia formation, needs for future , removal of uterus or any other indicated surgery discussed with the patient. She expressed understanding and repeats the risks. All of her questions were answered; all appropriate consents will be signed. PHYSICIAN'S VERIFICATION OF INFORMED CONSENT: The patient was counseled regarding the procedure, its indications, risks, potential complications and alternatives and any questions were answered. Consent was obtained. PLANNED PROCEDURE/TREATMENT: Vaginal delivery with possible vacuum/forceps delivery episiotomy, repair of laceration possible delivery PHYSICIAN'S VERIFICATION OF INFORMED CONSENT FOR BLOOD TRANSFUSION: There is a reasonable possibility that blood transfusion will be necessary as a result of the patient's procedure. I have discussed the following with the patient/patient's legal claims customer service representative: An explanation of the benefits and risks of the transfusion of blood or blood products and the possible alternatives. Al questions have been answered to the patient's/patients legal representatives satisfaction. INFORMED CONSENT: The patient has been informed of: - The nature of the proposed care, treatment, services, medic- Potential benefits, risks or side effects, including potential problems related to recuperation. - The likelihood of achieving care treatment and service goals. - Reasonable alternatives to the proposed care, treatment and service. - The relevant risks, benefits and side effects related to alternatives, including the possible results of not receiving care, treatment and services. - When indicated, any limitations on the confidentiality of information learned from or about the patient. - If appropriate, the risks, benefits and alternatives of the drugs to be used for sedation/analgesia including moderate sedation. MARINA SOW Oct 13, 2016 08:07
[2016-10-13 08:45] VITALS: BP 111/62; PULSE 65; RESP 18
[2016-10-13] MEDS: LACTATED RINGER'S 1,000 ML IV* SCH ×2 (09:00→13:03)
[2016-10-13] MEDS ORDERED: AMPICILLIN 1 GM/NS (PMX) 50 ML IV SCH (10:00)
[2016-10-13 12:00] VITALS: BP 115/61; PULSE 61; RESP 18
[2016-10-13] MEDS: IBUPROFEN 600 MG TAB PO SCH ×2 (12:49→18:31)
[2016-10-13 16:00] VITALS: BP 123/66; PULSE 80; RESP 18
[2016-10-13 19:50] VITALS: PULSE 72; RESP 18
[2016-10-14] VITALS: BP 123/62; PULSE 75; RESP 18
[2016-10-14] MEDS: IBUPROFEN 600 MG TAB PO SCH ×5 (00:09→23:29)
[2016-10-14 04:00] VITALS: BP 109/54; PULSE 77; RESP 18
[2016-10-14 08:00] VITALS: BP 115/61; PULSE 83; RESP 18
[2016-10-14 08:05] LABS: ADD SCAN DIFF NO
[2016-10-14 08:10] LABS: BASOPHILS % 0.1 % (0.0-2.0); EOSINOPHILS # 0.2 10^3/ul (0.0-0.5); EOSINOPHILS % 2.3 % (0.0-7.0); HEMATOCRIT 29.9 % (37.0-47.0); HEMOGLOBIN 9.3 g/dl (12.0-16.0); LYMPHOCYTES # 2.8 10^3/ul (0.8-2.9); LYMPHOCYTES % 31.6 % (15.0-51.0); MEAN CORPUSCULAR HEMOGLOBIN 25.2 pg (29.0-33.0); MEAN CORPUSCULAR HGB CONC 31.1 g/dl (32.0-37.0); MEAN PLATELET VOLUME 11.4 fl (7.4-10.4); MONOCYTE # 0.5 10^3/ul (0.3-0.9); MONOCYTES % 5.7 % (0.0-11.0); NEUTROPHIL # 5.2 10^3/ul (1.6-7.5); NEUTROPHILS % 59.3 % (39.0-77.0); PLATELET COUNT 313 10^3/UL (140-415); RED BLOOD COUNT 3.69 10^6/ul (4.20-5.40); RED CELL DISTRIBUTION WIDTH 16.5 % (11.5-14.5); WHITE BLOOD COUNT 8.8 10^3/ul (4.8-10.8)
--- NOTE | 2016-10-14 12:52 | PN ---
Date/Time of Note Date/Time of Note DATE: 10/14/16 TIME: 12:51 OB Subjective Subjective Subjective day 1 Afebrile vital signs stable abdomen soft uterus firm lochia moderate extremity normal Laboratory Tests Test 10/14/16 07:43 White Blood Count 8.810^3/ul Red Blood Count 3.6910^6/ul Hemoglobin 9.3g/dl Hematocrit 29.9% Mean Corpuscular Volume 81.0fl Mean Corpuscular Hemoglobin 25.2pg Mean Corpuscular Hemoglobin Concent 31.1g/dl Red Cell Distribution Width 16.5% Platelet Count 44081^3/UL Mean Platelet Volume 11.4fl Neutrophils % 59.3% Lymphocytes % 31.6% Monocytes % 5.7% Eosinophils % 2.3% Basophils % 0.1% Nucleated Red Blood Cells % 0.0/100WBC Neutrophils # 5.210^3/ul Lymphocytes # 2.810^3/ul Monocytes # 0.510^3/ul Eosinophils # 0.210^3/ul Basophils # 0.010^3/ul Nucleated Red Blood Cells # 0.010^3/ul Current Medications Medications (Trade) Dose Ordered Sig/Raffi Route PRN Reason Start Time Stop Time Status Last Admin Dose Admin Lactated Ringer's 1,000 ml @ 125 mls/hr Q8H IV 10/13/16 05:42 10/13/16 08:52 DC Ampicillin 100 ml @ 100 mls/hr ONCE ONCE IV 10/13/16 06:00 10/13/16 14:07 DC Ampicillin (Ampicillin 1 Gm/ NS (Pmx)) 50 ml @ 100 mls/hr Q4H IV 10/13/16 10:00 10/13/16 10:00 DC Butorphanol Tartrate (Stadol) 2 mg Q2H PRN IV PAIN 10/13/16 06:00 10/13/16 08:53 DC Lidocaine 30 ml 30 ml ONCE PRN INJ EPISIOTOMY/TEARING 10/13/16 06:00 10/13/16 08:53 DC Oxytocin/Lactated Ringer's 500 ml @ 125 mls/hr ONCE -MAY REPEAT X1 IV 10/13/16 06:00 10/13/16 08:53 DC 10/13/16 06:48 Oxytocin/Lactated Ringer's 500 ml @ 125 mls/hr ONCE IV 10/13/16 06:00 10/13/16 08:53 DC Ibuprofen 600 mg 600 mg ONCE PRN PO Mild Pain (Pain Score 1-3) 10/13/16 06:00 10/13/16 07:57 DC Lactated Ringer's 1,000 ml @ 2,000 mls/hr Q30M PRN IV PRE-EPIDURAL BOLUS 10/13/16 06:00 10/13/16 08:53 DC 10/13/16 05:56 Oxytocin/Lactated Ringer's 500 ml @ 0 mls/hr ONCE PRN IV For Hemorrhage Management 10/13/16 06:00 10/13/16 07:59 DC Methylergonovine Maleate (Methergine) 0.2 mg ONCE PRN IM VAGINAL BLEEDING 10/13/16 06:00 10/13/16 08:53 DC Carboprost Tromethamine (Hemabate) 250 mcg ONCE PRN IM VAGINAL BLEEDING 10/13/16 06:00 10/13/16 07:57 DC Misoprostol 1000 mcg 1,000 mcg ONCE PRN [place] VAGINAL BLEEDING 10/13/16 06:00 10/13/16 08:53 DC Lactated Ringer's (Lr) 1,000 ml @ 125 mls/hr Q8H IV* 10/13/16 07:52 10/13/16 14:07 DC Ibuprofen (Motrin) 600 mg Q6 PO 10/13/16 12:00 10/14/16 11:29 Acetaminophen (Tylenol Tab) 650 mg Q4H PRN PO PAIN LEVEL 1-5 10/13/16 08:00 Oxycodone/Aspirin (Percodan) 1 tab Q3H PRN PO PAIN LEVEL 1-5 10/13/16 08:00 10/13/16 08:28 Ondansetron HCl (Zofran Inj) 4 mg Q6H PRN IV NAUSEA AND/OR VOMITING 10/13/16 08:00 Diphenhydramine HCl (Benadryl) 25 mg Q6H PRN IV PRURITUS 10/13/16 08:00 10/13/16 08:53 DC Zolpidem Tartrate (Ambien) 5 mg QHS PRN PO INSOMNIA 10/13/16 08:00 Senna/Docusate Sodium (Senokot-S) 1 tab BID PRN PO CONSTIPATION 10/13/16 08:00 10/13/16 21:11 Witch Uyen/ Glycerin (Tucks Pads) 1 pad BEDSIDE MEDICATION PRN [place] HEMORRHOID/EPISIOTMY PAIN 10/13/16 08:00 10/13/16 10:00 Benzocaine (Dermoplast [place]) 1 spray BEDSIDE MEDICATION PRN TOP HEMORRHOID/EPISIOTMY PAIN 10/13/16 08:00 10/13/16 10:00 Dibucaine (Nupercainal) 1 applic BEDSIDE MEDICATION PRN [place] HEMORRHOID/EPISIOTMY PAIN 10/13/16 08:00 Lanolin (Dyd-G-Bpxblc) 1 applic BEDSIDE MEDICATION PRN TOP BEDSIDE FOR BRYAN TO NIPPLES 10/13/16 08:00 10/13/16 10:00 Measles/Mumps/ Rubella Vaccine Live (Mmr Ii Vaccine) 0.5 ml ONCE ONCE SC* 10/15/16 09:00 10/15/16 09:01 Diphtheria/ Tetanus/Acell Pertussis 0.5 ml 0.5 ml ONCE ONCE IM* 10/15/16 09:00 10/15/16 09:01 Oxytocin/Lactated Ringer's 500 ml @ 0 mls/hr ONCE PRN IV For Hemorrhage Management 10/13/16 08:00 Methylergonovine Maleate (Methergine) 0.2 mg ONCE PRN IM VAGINAL BLEEDING 10/13/16 08:00 Carboprost Tromethamine (Hemabate) 250 mcg ONCE PRN IM VAGINAL BLEEDING 10/13/16 08:00 Misoprostol 1000 mcg 1,000 mcg ONCE PRN [place] VAGINAL BLEEDING 10/13/16 08:00 Dextrose/Lactated Ringer's (D5-Lr) 1,000 ml @ 125 mls/hr Q8H IV 10/13/16 07:52 10/13/16 08:53 RIANNA PEARSON MD Oct 14, 2016 12:52
[2016-10-14 16:00] VITALS: BP 119/72; PULSE 77; RESP 16
[2016-10-14 19:40] VITALS: BP 119/59; PULSE 73; RESP 19
[2016-10-15 04:18] VITALS: BP 123/67; PULSE 83; RESP 19
[2016-10-15] MEDS: IBUPROFEN 600 MG TAB PO SCH ×2 (05:31→11:51)
[2016-10-15 08:10] VITALS: BP 106/61; PULSE 77; RESP 20
[2016-10-15] MEDS ORDERED: DIPHTH/TET/ACEL PERTUSS (ADULT) 0.5 ML VIAL IM* ONE (09:00)
[2016-10-15] MEDS ORDERED: MEASLES,MUMPS,RUBELLA VACCINE INJ SC* ONE (09:00)
--- NOTE | 2016-10-15 13:47 | DS ---
Date/Time of Note Date/Time of Note DATE: 10/15/16 TIME: 13:45 Discharge Summary Admission/Discharge Info Admit Date/Time Oct 13, 2016 at 05:40 Discharge Date/Time October 15, 2016 at 1400 Final Diagnosis Term day 2 post normal vaginal delivery Patient Condition: Good Procedures Normal spontaneous vaginal delivery Hx of Present Illness Term in labor Hospital Course Satisfactory Home Meds Reported Medications Multivit/Min/Fol Ac/Iron/Pren* ( S*) 1 Tab Tab, 1 TAB PO DAILY, TAB 09/27/16 Vit-Iron Fumarate-FA ( Tablet) 1 Each Tablet, 1 EACH PO DAILY 10/15/13 Follow-up Plan instructions given patient advised to make an appointment in 2 weeks with the clinic for follow-up RIANNA HASSAN MD Oct 15, 2016 13:47
--- NOTE | 2016-10-15 13:49 | PN ---
Date/Time of Note Date/Time of Note DATE: 10/15/16 TIME: 13:48 OB Subjective Subjective Subjective Post day 1 Afebrile vital signs stable ambulating in no apparent distress or pain abdomen soft incision dry lochia moderate extremity normal ambulation encouraged Current Medications Medications (Trade) Dose Ordered Sig/Raffi Route PRN Reason Start Time Stop Time Status Last Admin Dose Admin Lactated Ringer's 1,000 ml @ 125 mls/hr Q8H IV 10/13/16 05:42 10/13/16 08:52 DC Ampicillin 100 ml @ 100 mls/hr ONCE ONCE IV 10/13/16 06:00 10/13/16 14:07 DC Ampicillin (Ampicillin 1 Gm/ NS (Pmx)) 50 ml @ 100 mls/hr Q4H IV 10/13/16 10:00 10/13/16 10:00 DC Butorphanol Tartrate (Stadol) 2 mg Q2H PRN IV PAIN 10/13/16 06:00 10/13/16 08:53 DC Lidocaine 30 ml 30 ml ONCE PRN INJ EPISIOTOMY/TEARING 10/13/16 06:00 10/13/16 08:53 DC Oxytocin/Lactated Ringer's 500 ml @ 125 mls/hr ONCE -MAY REPEAT X1 IV 10/13/16 06:00 10/13/16 08:53 DC 10/13/16 06:48 Oxytocin/Lactated Ringer's 500 ml @ 125 mls/hr ONCE IV 10/13/16 06:00 10/13/16 08:53 DC Ibuprofen 600 mg 600 mg ONCE PRN PO Mild Pain (Pain Score 1-3) 10/13/16 06:00 10/13/16 07:57 DC Lactated Ringer's 1,000 ml @ 2,000 mls/hr Q30M PRN IV PRE-EPIDURAL BOLUS 10/13/16 06:00 10/13/16 08:53 DC 10/13/16 05:56 Oxytocin/Lactated Ringer's 500 ml @ 0 mls/hr ONCE PRN IV For Hemorrhage Management 10/13/16 06:00 10/13/16 07:59 DC Methylergonovine Maleate (Methergine) 0.2 mg ONCE PRN IM VAGINAL BLEEDING 10/13/16 06:00 10/13/16 08:53 DC Carboprost Tromethamine (Hemabate) 250 mcg ONCE PRN IM VAGINAL BLEEDING 10/13/16 06:00 10/13/16 07:57 DC Misoprostol 1000 mcg 1,000 mcg ONCE PRN [place] VAGINAL BLEEDING 10/13/16 06:00 10/13/16 08:53 DC Lactated Ringer's (Lr) 1,000 ml @ 125 mls/hr Q8H IV* 10/13/16 07:52 10/13/16 14:07 DC Ibuprofen (Motrin) 600 mg Q6 PO 10/13/16 12:00 10/15/16 11:51 Acetaminophen (Tylenol Tab) 650 mg Q4H PRN PO PAIN LEVEL 1-5 10/13/16 08:00 Oxycodone/Aspirin (Percodan) 1 tab Q3H PRN PO PAIN LEVEL 1-5 10/13/16 08:00 10/13/16 08:28 Ondansetron HCl (Zofran Inj) 4 mg Q6H PRN IV NAUSEA AND/OR VOMITING 10/13/16 08:00 Diphenhydramine HCl (Benadryl) 25 mg Q6H PRN IV PRURITUS 10/13/16 08:00 10/13/16 08:53 DC Zolpidem Tartrate (Ambien) 5 mg QHS PRN PO INSOMNIA 10/13/16 08:00 Senna/Docusate Sodium (Senokot-S) 1 tab BID PRN PO CONSTIPATION 10/13/16 08:00 10/13/16 21:11 Witch Uyen/ Glycerin (Tucks Pads) 1 pad BEDSIDE MEDICATION PRN [place] HEMORRHOID/EPISIOTMY PAIN 10/13/16 08:00 10/13/16 10:00 Benzocaine (Dermoplast [place]) 1 spray BEDSIDE MEDICATION PRN TOP HEMORRHOID/EPISIOTMY PAIN 10/13/16 08:00 10/13/16 10:00 Dibucaine (Nupercainal) 1 applic BEDSIDE MEDICATION PRN [place] HEMORRHOID/EPISIOTMY PAIN 10/13/16 08:00 Lanolin (Cvr-F-Nmgolh) 1 applic BEDSIDE MEDICATION PRN TOP BEDSIDE FOR BRYAN TO NIPPLES 10/13/16 08:00 10/13/16 10:00 Measles/Mumps/ Rubella Vaccine Live (Mmr Ii Vaccine) 0.5 ml ONCE ONCE SC* 10/15/16 09:00 10/15/16 09:01 DC Diphtheria/ Tetanus/Acell Pertussis 0.5 ml 0.5 ml ONCE ONCE IM* 10/15/16 09:00 10/15/16 09:01 DC Oxytocin/Lactated Ringer's 500 ml @ 0 mls/hr ONCE PRN IV For Hemorrhage Management 10/13/16 08:00 Methylergonovine Maleate (Methergine) 0.2 mg ONCE PRN IM VAGINAL BLEEDING 10/13/16 08:00 Carboprost Tromethamine (Hemabate) 250 mcg ONCE PRN IM VAGINAL BLEEDING 10/13/16 08:00 Misoprostol 1000 mcg 1,000 mcg ONCE PRN [place] VAGINAL BLEEDING 10/13/16 08:00 Dextrose/Lactated Ringer's (D5-Lr) 1,000 ml @ 125 mls/hr Q8H IV 10/13/16 07:52 10/13/16 08:53 RIANNA PEARSON MD Oct 15, 2016 13:49
== END 2016-10-15 14:10 | disposition home or self-care (01) | DRG 775 ==
LOC: OBT 05:20 → L-D 05:20 → OBT 05:40 → L-D 05:40 → PP1 08:43
PROVIDERS: ADMIT Obstetrics & Gynecology; ATTEND Obstetrics & Gynecology
PROC: 10E0XZZ Delivery of Products of Conception, External Approach (ICD-10-PCS; principal; 2016-10-13)
PROC: 0HQ9XZZ Repair Perineum Skin, External Approach (ICD-10-PCS; 2016-10-13)
DX: O70.0 First degree perineal laceration during delivery (principal); Z37.0 Single live birth; Z3A.39 39 weeks gestation of pregnancy
CPT/HCPCS: 80053; 84560; 85025; 85610; 85730; 86592; 87340; 90715; 99464; G0463; J2590; J7120; J7121

== ENCOUNTER 2017-08-22 13:34 | Emergency (ER) | END 2017-08-22 14:03 | disposition left against medical advice (07) ==